=== PATIENT | male | born 1995 | race Caucasian/White ===

== ENCOUNTER 2020-12-21 11:26 | Emergency (ER) | payer OTHER, SELFPAY ==
[2020-12-21] MEDS ORDERED: Sodium Chloride 0.9% 1,000 ML ONE (11:52)
[2020-12-21] MEDS ORDERED: Crotalidae Polyvalent Antivenin 1 GM VIAL ONE (11:52)
[2020-12-21 12:00] LABS: #Basophils 0.1 thou/uL (0.0-0.2); #Eosinphils 0.3 thou/uL (0.0-0.7); #Lymphocytes 1.2 thou/uL (1.20-3.40); #Monocytes 0.5 thou/uL (0.11-0.59); #Neutrophils 2.3 thou/uL (1.40-6.50); %Basophils 1.8 % (0.0-1.0); %Lymphocytes 27.2 % (21.0-51.0); %Monocytes 11.1 % (0.0-10.0); Hemoglobin 15.5 g/dL (14.0-18.0); Mean Corpuscular HGB CONC 33.8 g/dL (32.0-36.0); Mean Corpuscular Hemoglobin 30.6 pg (27.0-31.0); Mean Corpuscular Volume 90.3 fL (78.0-98.0); Mean Platelet Volume 7.3 fL (7.4-10.4); Platelet Count 198 thou/uL (130-400); RBC Distribution Width 11.4 % (11.5-14.5); Red Blood Cell (RBC) Count 5.09 mill/uL (4.70-6.10); White Blood Cell (WBC) Count 4.3 thou/uL (4.8-10.8)
[2020-12-21 12:12] LABS: Prothrombin Time 13.2 sec (12.0-14.7)
[2020-12-21] MEDS ORDERED: Ondansetron PF 4 MG/2 ML Vial ONE ×2 (12:12→13:58)
[2020-12-21] MEDS ORDERED: Morphine 4 MG/ML VIAL ONE ×2 (12:12→13:18)
[2020-12-21 12:13] LABS: PTT 27.4 sec (22.9-36.1)
[2020-12-21 12:15] LABS: ALT (SGPT) 37 U/L (8-55); AST (SGOT) 29 U/L (5-34); Albumin 4.5 g/dL (3.5-5.0); Alkaline Phosphatase 46 U/L (40-110); Anion Gap 15 mmol/L (10-20); BUN (Urea Nitrogen) 14 mg/dL (8.9-20.6); Bilirubin, Total 0.7 mg/dL (0.2-1.2); CK (CPK) 243 U/L (30-200); Calc. Creatinine Clearance 0 mL/min (70-130); Calcium 9.8 mg/dL (7.8-10.44); Carbon Dioxide 25 mmol/L (22-29); Chloride 104 mmol/L (98-107); Globulin 2.4 g/dL (2.4-3.5); Glucose 132 mg/dL (70-105); Potassium 3.6 mmol/L (3.5-5.1); Protein, Total 6.9 g/dL (6.0-8.3); Sodium 140 mmol/L (136-145)
== END 2020-12-21 14:12 | disposition short-term general hospital (02) ==
LOC: MADERS 11:26
DX: T63.061A Toxic effect of venom of other North and South American snake, accidental (unintentional), initial encounter (principal)
CPT/HCPCS: 80053; 82550; 85025; 85384; 85610; 85730; 96365; 96375; 96376; J0840; J2270; J2405; J7050